=== PATIENT | male | born 1945 | race Caucasian/White ===

== ENCOUNTER 2020-01-15 09:27 | Outpatient (CLI) | payer MEDICARE ==
[2020-01-15] MEDS ORDERED: METF500T17 PO (09:47)
[2020-01-15] MEDS ORDERED: UBID1CAP43 PO (09:47)
[2020-01-15] MEDS ORDERED: TURM500C4 PO (09:47)
[2020-01-15] MEDS ORDERED: ASPI81TA45 PO (09:47)
[2020-01-15] MEDS ORDERED: MELO7.5T31 PO (09:47)
[2020-01-15] MEDS ORDERED: MAGN400T9 PO (09:47)
[2020-01-15] MEDS ORDERED: CHOL10003 PO (09:47)
[2020-01-15] MEDS ORDERED: GLUC1TAB91 PO (09:47)
[2020-01-15] MEDS ORDERED: LOSA25TA25 PO (09:47)
[2020-01-15] MEDS ORDERED: PRAV20TA2 PO (09:47)
[2020-01-15 11:21] LABS: BASOPHILS % (AUTO) 0 % (0-1); EOSINOPHILS % (AUTO) 1 % (1-7); LYMPHOCYTES % (AUTO) 30 % (22-44); MEAN CORPUSCULAR HEMOGLOBIN 31.1 pg (27.5-34.5); MEAN CORPUSCULAR HGB CONC 33.2 g/dL (33.2-36.2); MEAN PLATELET VOLUME 9.4 fL (7.4-10.4); MONOCYTES % (AUTO) 11 % (2-9); NEUTROPHILS % (AUTO) 58 % (42-75); PLATELET COUNT 170 x10^3/uL (130-400); RED BLOOD COUNT 4.96 x10^6/uL (4.38-5.82); RED CELL DISTRIBUTION WIDTH 13.3 % (9.4-14.8)
[2020-01-15 11:23] LABS: MD NO
[2020-01-15 11:24] LABS: INTERNATIONAL NORMALIZED RATIO 1.01 (0.93-1.1); PROTHROMBIN TIME 10.7 Seconds (9.6-11.5)
[2020-01-15 11:27] LABS: ANION GAP 6 mmol/L (5-15); CALCIUM 9.5 mg/dL (8.5-10.1); CHLORIDE 108 mmol/L (98-107)
[2020-01-15 11:31] LABS: ALANINE AMINOTRANSFERASE 19 U/L (12-78); ALKALINE PHOSPHATASE 79 U/L (45-117); BILIRUBIN,TOTAL 0.6 mg/dL (0.2-1.0); CREATININE 0.99 mg/dL (0.7-1.3); TOTAL PROTEIN 7.5 g/dL (6.4-8.2)
== END 2020-01-15 23:59 | disposition home or self-care (01) ==
LOC: STAR 09:27
PROVIDERS: ATTEND Orthopaedic Surgery
DX: Z01.818 Encounter for other preprocedural examination (principal); Z20.828 Contact with and (suspected) exposure to other viral communicable diseases; M17.12 Unilateral primary osteoarthritis, left knee; I44.7 Left bundle-branch block, unspecified; Z79.01 Long term (current) use of anticoagulants
CPT/HCPCS: 36415; 80053; 83036; 85025; 85610; 85730; 87081; 87635; 87806; 93005; G0475

== ENCOUNTER 2020-01-20 08:39 | Observation (INO) | payer MEDICARE ==
[~2020-01-20] VITALS: Ht 172.7 cm; Wt 93.9 kg
[~2020-01-20 08:39] MED LIST: ASPI81TA45 PO; CHOL10003 PO; EPINEPHRINE 1 MG/ML, 1ML ONE; GLUC1TAB91 PO; KETOROLAC 60 MG/2 ML ONE; LOSA25TA25 PO; MAGN400T9 PO; MELO7.5T31 PO; METF500T17 PO; PRAV20TA2 PO; ROPIvacaine/PF 0.2%, 20 ML ONE; SODIUM CHLORIDE 0.9% 50 ML ONE; TRANEXAMIC ACID 100 MG/ML, 10ML ONE; TURM500C4 PO; UBID1CAP43 PO; VANCOMYCIN 1,000 MG ONE
[2020-01-20] MEDS: LACTATED RINGERS 1,000 ML IV SCH ×2 (09:21→18:35)
[2020-01-20] MEDS ORDERED: GABAPENTIN 300 MG CAPSULE PO ONE (09:30)
[2020-01-20] MEDS ORDERED: ACETAMINOPHEN 500 MG TABLET PO ONE (09:30)
[2020-01-20] MEDS ORDERED: CHLORHEXIDINE 15 ML UDC MM ONE (09:30)
[2020-01-20] MEDS ORDERED: FENTANYL PF 250 MCG/5ML ONE (10:24)
[2020-01-20] MEDS ORDERED: BUPIVACAINE/PF 0.25% ONE (10:42)
[2020-01-20] MEDS ORDERED: ROPIvacaine/PF 0.2%, 20 ML INFIL ONE (10:59)
[2020-01-20] MEDS ORDERED: EPINEPHRINE 1 MG/ML, 1ML INFIL ONE (10:59)
[2020-01-20] MEDS ORDERED: 0.9 % SODIUM CHLORIDE 10 ML VIAL INJ ONE (10:59)
[2020-01-20] MEDS ORDERED: KETOROLAC 60 MG/2 ML IM ONE (10:59)
[2020-01-20] MEDS ORDERED: KETOROLAC 60 MG/2 ML ONE (11:04)
[2020-01-20] MEDS ORDERED: OXYcodone 5 MG/5 ML ORAL.SOL UDC PO PRN (11:30)
[2020-01-20] MEDS ORDERED: ONDANSETRON 2MG/ML, 2ML IVPush PRN ×2 (11:30→13:30)
[2020-01-20] MEDS ORDERED: FENTANYL PF 100 MCG/2ML ONE (11:30)
[2020-01-20] MEDS ORDERED: HYDROmorphone 1 MG/ML, 1ML INJ IVPush PRN ×2 (11:30→13:30)
[2020-01-20] MEDS ORDERED: PROMETHAZINE 25 MG/ML, 1ML IVPush PRN (11:30)
[2020-01-20] MEDS ORDERED: METHOCARBAMOL 1,000 MG in DEXTROSE 5% 100 ML IV PRN (11:30)
[2020-01-20] MEDS ORDERED: PROMETHAZINE 25 MG SUPP PR PRN (11:30)
[2020-01-20] MEDS ORDERED: LORazepam 2 MG/ML, 1ML IVPush PRN (11:30)
[2020-01-20] MEDS ORDERED: hydrALAzine 20 MG/ML, 1ML IV PRN (11:30)
[2020-01-20] MEDS ORDERED: FENTANYL PF 100 MCG/2ML IV PRN (11:30)
[2020-01-20] MEDS ORDERED: LABETALOL 5MG/ML, 20ML IV PRN (11:30)
[2020-01-20] MEDS ORDERED: ONDANSETRON 2MG/ML, 2ML ONE (11:40)
[2020-01-20] MEDS ORDERED: CEFAZOLIN 1,000 MG ONE (11:40)
[2020-01-20] MEDS ORDERED: DEXAMETHASONE 4 MG/ML, 1ML ONE (11:40)
[2020-01-20] MEDS ORDERED: PROPOFOL 10 MG/ML, 20ML ONE (11:40)
[2020-01-20] MEDS ORDERED: TRANEXAMIC ACID 1,000 MG in SODIUM CHLORIDE 0.9% 100 ML IVPB STA (12:17)
[2020-01-20] MEDS ORDERED: MEPERIDINE/PF 25MG/ML,1ML ONE (12:22)
[2020-01-20] MEDS: MEPERIDINE/PF 25MG/0.5ML IVPush PRN ×3 (12:24→16:17)
[2020-01-20] MEDS ORDERED: ACETAMINOPHEN 650 MG/20.3 ML UDC PO PRN (13:30)
[2020-01-20] MEDS ORDERED: PSYLLIUM PACKET PO PRN (13:30)
[2020-01-20] MEDS ORDERED: ONDANSETRON 4 MG TABLET PO PRN (13:30)
[2020-01-20] MEDS ORDERED: POLYETHYLENE GLYCOL 17 GM PACKET PO PRN (13:30)
[2020-01-20] MEDS ORDERED: SENNA/DOCUSATE TABLET PO PRN (13:30)
[2020-01-20] MEDS ORDERED: ALUMINUM/MAG/SIMETHICONE 30 ML UDC PO PRN (13:30)
[2020-01-20] MEDS ORDERED: DIPHENHYDRAMINE 50 MG CAPSULE PO PRN (13:30)
[2020-01-20] MEDS ORDERED: DEXAMETHASONE 4 MG/ML, 1ML IVPush SCH (13:30)
[2020-01-20] MEDS ORDERED: OXYcodone IR 5MG TABLET PO PRN (13:30)
[2020-01-20] MEDS ORDERED: TRANEXAMIC ACID 1,000 MG in SODIUM CHLORIDE 0.9% 100 ML IVPB ONE (13:30)
[2020-01-20] MEDS ORDERED: MAGNESIUM HYDROXIDE 8%, 30ML UDC PO PRN (13:30)
[2020-01-20] MEDS ORDERED: METOCLOPRAMIDE 10MG TABLET PO PRN (13:30)
[2020-01-20] MEDS: POTASSIUM CHLORIDE 20 MEQ in D5%-0.45% NACL 1,000 ML IV SCH ×2 (13:30→23:36)
[2020-01-20] MEDS ORDERED: DIPHENHYDRAMINE 50 MG/ML, 1ML IVPush PRN (13:30)
[2020-01-20 13:35] VITALS: BP 134/84
[2020-01-20] MEDS: KETOROLAC 30 MG/1 ML IV SCH (17:10)
[2020-01-20] MEDS: ASPIRIN 81 MG TABLET EC PO SCH (17:12)
[2020-01-20 18:59] VITALS: BP 122/81
[2020-01-20] MEDS: CEFAZOLIN PMX 1GM/50ML 50 ML IVPB SCH (20:30)
[2020-01-20] MEDS: DOCUSATE 100 MG CAPSULE PO SCH (20:30)
[2020-01-21 01:00] VITALS: BP 120/73
[2020-01-21] MEDS: KETOROLAC 30 MG/1 ML IV SCH ×2 (01:11→08:25)
[2020-01-21 04:20] VITALS: BP 126/75
[2020-01-21] MEDS: CEFAZOLIN PMX 1GM/50ML 50 ML IVPB SCH (04:24)
[2020-01-21] MEDS: ASPIRIN 81 MG TABLET EC PO SCH (05:42)
[2020-01-21] MEDS ORDERED: DEXAMETHASONE 4 MG/ML, 1ML IVPush SCH (06:00)
[2020-01-21 07:12] VITALS: BP 118/71
[2020-01-21] MEDS: DOCUSATE 100 MG CAPSULE PO SCH (08:24)
[2020-01-21] MEDS ORDERED: TAMSULOSIN 0.4 MG CAP.ER.24H PO SCH (09:00)
[2020-01-21] MEDS: POTASSIUM CHLORIDE 20 MEQ in D5%-0.45% NACL 1,000 ML IV SCH (09:42)
== END 2020-01-21 10:42 | disposition home or self-care (01) ==
LOC: OUT 08:39 → 3WST 13:40 → UNDODISOB 01-21 10:27 → DCLOUNGE 01-21 10:37
PROVIDERS: ADMIT Orthopaedic Surgery; ATTEND Orthopaedic Surgery
DX: M17.12 Unilateral primary osteoarthritis, left knee (principal); M71.22 Synovial cyst of popliteal space [Baker], left knee; I10 Essential (primary) hypertension; E11.9 Type 2 diabetes mellitus without complications; G89.29 Other chronic pain; Z79.899 Other long term (current) drug therapy; Z87.891 Personal history of nicotine dependence
CPT/HCPCS: 27447; 36415; 73560; 82962; 85014; 85018; 96365; 96366; 96375; 96376; 97110; 97161; 97165; C1713; C1776; G0378; J0171; J0690; J1100; J1885; J2175; J2405; J2704; J2795; J2800; J3010; J7120; J3370